=== PATIENT | female | born 2000 | race African-American/Black ===

== ENCOUNTER 2022-02-27 11:34 | Emergency (ER) | payer MEDICAID ==
[~2022-02-27] VITALS: Ht 165.1 cm; Wt 86.2 kg
[2022-02-27 11:39] VITALS: BP 110/82
--- NOTE | 2022-02-27 11:43 | NUR ---
TO ER CHAIR 1 FOR EVAL AND TREATMENT
--- NOTE | 2022-02-27 12:56 | NUR ---
Patient discharged to home in stable condition. Written and verbal after care instructions given. Patient verbalizes understanding of instruction.
== END 2022-02-27 12:56 | disposition home or self-care (01) ==
LOC: ER 11:40
DX: M25.531 Pain in right wrist (principal)
CPT/HCPCS: 73110

== ENCOUNTER 2023-02-14 07:14 | Emergency (ER) | payer MEDICAID ==
[~2023-02-14] VITALS: Ht 165.1 cm; Wt 87.5 kg
[2023-02-14 07:19] VITALS: BP 138/67; TEMP 98.4; O2SAT 100
[2023-02-14] MEDS ORDERED: CYCL5TAB PO (07:56)
[2023-02-14] MEDS ORDERED: IBUP-1955 PO (07:56)
[2023-02-14] MEDS: KETOROLAC TROMETHAMINE 15 MG/ML VIAL IM ONE (08:00)
[2023-02-14] MEDS ORDERED: KETOROLAC TROMETHAMINE 15 MG/ML VIAL ONE (08:04)
== END 2023-02-14 08:11 | disposition home or self-care (01) ==
LOC: ER 07:16
DX: S13.4XXA Sprain of ligaments of cervical spine, initial encounter (principal); S16.1XXA Strain of muscle, fascia and tendon at neck level, initial encounter; M54.50 Low back pain, unspecified; V89.2XXA Person injured in unspecified motor-vehicle accident, traffic, initial encounter; Y93.89 Activity, other specified; Y92.89 Other specified places as the place of occurrence of the external cause; Y99.8 Other external cause status
CPT/HCPCS: 99283; 96372; J1885

== ENCOUNTER 2024-12-03 18:11 | Emergency (ER) | payer MEDICAID ==
[~2024-12-03] VITALS: Ht 165.1 cm; Wt 89.4 kg
[~2024-12-03 18:11] MED LIST: CYCL5TAB PO; IBUP-1955 PO
[2024-12-03 18:27] VITALS: BP 109/71; TEMP 98.1; O2SAT 99
== END 2024-12-03 18:58 | disposition home or self-care (01) ==
LOC: ER 18:14
DX: S81.811A Laceration without foreign body, right lower leg, initial encounter (principal); W25.XXXA Contact with sharp glass, initial encounter; Y93.89 Activity, other specified; Y92.89 Other specified places as the place of occurrence of the external cause; Y99.8 Other external cause status
CPT/HCPCS: 12001; 99282; A6403